=== PATIENT | male | born 1965 | race African-American/Black ===

== ENCOUNTER 2018-11-18 13:15 | Outpatient (CLI) | payer OTHER ==
[2018-11-18 14:19] LABS: #Basophils 0.1 thou/uL (0.0-0.2); #Eosinphils 0.3 thou/uL (0.0-0.7); #Lymphocytes 2.1 thou/uL (1.20-3.40); #Monocytes 0.4 thou/uL (0.11-0.59); #Neutrophils 3.4 thou/uL (1.40-6.50); %Basophils 1.2 % (0.0-1.0); %Eosinophils 4.3 % (0.0-10.0); %Lymphocytes 33.8 % (21.0-51.0); %Monocytes 6.9 % (0.0-10.0); %Neutrophils 53.8 % (42.0-75.0); Hemoglobin 15.2 g/dL (14.0-18.0); Mean Corpuscular HGB CONC 30.9 g/dL (32.0-36.0); Mean Corpuscular Hemoglobin 26.1 pg (27.0-31.0); Mean Corpuscular Volume 84.3 fL (78.0-98.0); Mean Platelet Volume 8.5 fL (7.4-10.4); Platelet Count 244 thou/uL (130-400); RBC Distribution Width 13.7 % (11.5-14.5); Red Blood Cell (RBC) Count 5.83 mill/uL (4.70-6.10); White Blood Cell (WBC) Count 6.4 thou/uL (4.8-10.8)
[2018-11-18 14:43] LABS: Anion Gap 14 mmol/L (10-20); BUN (Urea Nitrogen) 18 mg/dL (8.4-25.7); Calc. Creatinine Clearance 0 mL/min (70-130); Calcium 9.7 mg/dL (7.8-10.44); Carbon Dioxide 27 mmol/L (22-29); Chloride 103 mmol/L (98-107); Estimated GFR-MDRD Greater than 90; Glucose 98 mg/dL (70-105); Potassium 4.7 mmol/L (3.5-5.1); Sodium 139 mmol/L (136-145)
== END 2018-11-18 13:16 | disposition home or self-care (01) ==
LOC: LABBT 13:15
PROVIDERS: ATTEND Surgery
DX: Z01.812 Encounter for preprocedural laboratory examination (principal); K43.9 Ventral hernia without obstruction or gangrene
CPT/HCPCS: 80048; 85025

== ENCOUNTER 2018-11-22 11:21 | Day surgery (SDC) | payer OTHER ==
[2018-11-18 13:32] VITALS: BMI 28.8
[~2018-11-22 11:21] MED LIST: Dexamethasone 20 MG/5 ML VIAL ONE; Glycopyrrolate 0.2 MG/ML 5 ML SYRINGE ONE; Lidocaine 1% PF 5 ML VIAL ONE; Ondansetron PF 4 MG/2 ML Vial ONE; PROPOFOL 200 MG/20 ML VIAL ONE; Rocuronium Bromide 10 MG/ML (10ML VIAL) ONE
[2018-11-22] MEDS ORDERED: Bupivacaine/Epinephrine 0.25% 30 ML VIAL ONE (13:13)
[2018-11-22] MEDS ORDERED: Fentanyl 250 MCG/5 ML VIAL ONE (13:23)
[2018-11-22] MEDS ORDERED: Ketorolac Tromethamine 30 MG/ML VIAL ONE (15:11)
[2018-11-22] MEDS ORDERED: Fentanyl 100 MCG/2 ML VIAL ONE (15:11)
[2018-11-22] MEDS ORDERED: HYDROcodone/Acetaminophen 5/325 mg Tablet ONE (16:27)
--- NOTE | 2018-11-22 21:18 | OP ---
DATE OF PROCEDURE: 11/22/2018 PREOPERATIVE DIAGNOSIS: Ventral hernia, umbilical hernia. POSTOPERATIVE DIAGNOSIS: Ventral hernia, umbilical hernia. PROCEDURE PERFORMED: Da Domenic laparoscopic umbilical hernia repair with mesh, ventral hernia repair. ANESTHESIA: General. SPECIMENS: None. COMPLICATIONS: None. FINDINGS: Umbilical hernia, ventral hernia. TECHNIQUE: The patient was taken to the operating room and laid supine on the operating room table. After general anesthetic was obtained, the abdomen was shaved, prepped and draped in a sterile fashion. A Liz catheter had been placed. Left subcostal 5 mm Optiview trocar placed in usual fashion. High-flow pneumoperitoneum was obtained. Right upper quadrant and left upper quadrant 8 mm robotic trocars were placed. All ports were docked to the robot. The peritoneum was taken down near the umbilicus. All the fat was dissected out of the umbilical hernia. Dissection higher up in the falciform was taken down exposing an epigastric hernia. Significant amount of fat was in the epigastric hernia. A #1 V-Loc was used to suture close the umbilical defect and the ventral hernia defect. The ventral hernia defect was very small. 8 cm capitan grande of Ventralex mesh was brought into the field and the nonadherent barrier was left down. The exposed mesh was placed up against the posterior fascia. It was sewn to the posterior fascia using two 0 V-Loc suture. All needles were removed from the abdomen and accounted for. All port sites were infiltrated using local anesthetic. All ports were removed under camera visualization. Pneumoperitoneum was let down. A 4-0 Monocryl and Dermabond to close all skin incisions. The patient was sent to Recovery in stable condition. All instrument counts, needle counts, and lap counts were correct. Job ID: [id number]
== END 2018-11-22 16:55 | disposition home or self-care (01) ==
LOC: SDC 11:21
PROVIDERS: ATTEND Surgery
PROC: 0WUF4JZ Supplement Abdominal Wall with Synthetic Substitute, Percutaneous Endoscopic Approach (ICD-10-PCS; principal; 2018-11-22)
DX: K42.9 Umbilical hernia without obstruction or gangrene (principal); K43.9 Ventral hernia without obstruction or gangrene
CPT/HCPCS: J0690; J1100; J1885; J2001; J2405; J2704; J3010